=== PATIENT | female | born 1990 | race Caucasian/White ===

== ENCOUNTER → 2016-07-29 | Outpatient (CLI) | payer BC ==
[~2016-07-29] MED LIST: AA/A14DR2 RIGHT EAR; ACET-789 PO; ALBU17AE3; ASP81TEC PO; AZTH250C PO; BACL10TA PO; CELEXA; CHOL4PAC17 PO; GBPN600T PO; HYDR-700 PO; IBP800T PO; IBUP-1773 PO; INDO25CA PO; MECL12.579 PO; METF-380 PO; METF1000 PO; METFORMIN; NAPR-243 PO; NITR-65 PO; NITR100C3 PO; ONDAN4ODT PO; ONDN4T PO; PHEN100T26 PO; PNT40TEC PO; PREG50C PO; PRENATAL VIT PO; PRX10T PO; SERT25TA PO; SULF1TAB38; TOPAMAX; TPR25T PO; TRAM50TA2 PO; TRM50T PO; ocella PO
--- NOTE | 2016-07-29 12:21 | Diagnostic Imaging Report ---
INDICATION: Right hand injury. Pain 3 views of the right hand shows no fracture, dislocation or other acute bony abnormality. IMPRESSION: Normal right hand. Dictated by: Dictated on workstation # [id number]
== END ==
LOC: RAD 11:58
PROVIDERS: ATTEND Nurse Practitioner Family
DX: M79.641 Pain in right hand (principal)
CPT/HCPCS: 73130

== ENCOUNTER 2017-06-02 08:53 | Emergency (ER) | payer BC ==
[~2017-06-02] VITALS: Ht 165.1 cm; Wt 137.9 kg
[2017-06-02] MEDS ORDERED: KETOROLAC 30 MG/ML VIAL IVP STA (10:16)
[2017-06-02] MEDS ORDERED: CLINDAMYCIN 900 MG/50 ML IVPB 50 ML IV ONE (10:30)
[2017-06-02] MEDS ORDERED: NS 100 ML (IVPB) BAG IV ONE (11:00)
[2017-06-02] MEDS ORDERED: IOHEXOL 350 MG/ML 100 ML (OMNIPAQUE 350) VIAL IV ONE (11:00)
[2017-06-02 11:37] LABS: BASOPHILS % (AUTO) 0 % (0-10); EOSINOPHILS # (AUTO) 0.2 10^3/uL (0.0-0.3); EOSINOPHILS % (AUTO) 2 % (0-10); HEMATOCRIT 47 % (35-52); HEMOGLOBIN 15.9 G/DL (11.5-16.0); LYMPHOCYTES % (AUTO) 18 % (12-44); MEAN CORPUSCULAR HEMOGLOBIN 29 PG (25-34); MEAN CORPUSCULAR HGB CONC 34 G/DL (32-36); MEAN CORPUSCULAR VOLUME 85 FL (80-99); MONOCYTES # (AUTO) 0.9 X 10^3 (0.0-1.0); MONOCYTES % (AUTO) 9 % (0-12); NEUTROPHILS % (AUTO) 72 % (42-75); PLATELET COUNT 201 10^3/uL (130-400); RED CELL DISTRIBUTION WIDTH 12.7 % (10.0-14.5); WHITE BLOOD COUNT 11.1 10^3/uL (4.3-11.0)
[2017-06-02 11:52] LABS: ALANINE AMINOTRANSFERASE 36 U/L (0-55); ALBUMIN 4.6 GM/DL (3.2-4.5); ALKALINE PHOSPHATASE 56 U/L (40-136); AMYLASE 53 U/L (25-125); BILIRUBIN,TOTAL 0.5 MG/DL (0.1-1.0); BUN/CREATININE RATIO 12; CALCIUM 9.4 MG/DL (8.5-10.1); CARBON DIOXIDE 24 MMOL/L (21-32); CHLORIDE 105 MMOL/L (98-107); CREATININE SERUM 0.74 MG/DL (0.60-1.30); GFR ESTIMATED > 60; GLUCOSE 97 MG/DL (70-105); LIPASE 36 U/L (8-78); POTASSIUM 4.3 MMOL/L (3.6-5.0); SODIUM 138 MMOL/L (135-145); TOTAL PROTEIN 7.4 GM/DL (6.4-8.2)
--- NOTE | 2017-06-02 12:17 | Diagnostic Imaging Report ---
PROCEDURE: CT neck soft tissue with contrast. TECHNIQUE: Multiple contiguous axial images were obtained through the neck after the administration of contrast. INDICATION: Right-sided swelling Comparison: None Findings: There is moderate periapical lucency surrounding the right lower canine tooth best seen on series 3 image 54. There is erosion/destruction of the anterior cortex of the mandible at this level with a large amount of soft tissue edema and phlegmon involving the subcutaneous soft tissues ventral to the right mandible. There are a few prominent submental and submandibular lymph nodes on the right, likely reactive. The basal sinuses are clear. The airway appears patent. The thyroid gland appears unremarkable. No acute osseous abnormality seen. Impression: 1. There is an abscess tooth involving the right lower canine with cortical disruption of the anterior cortex of the mandible and considerable soft tissue phlegmon ventral to the right mandible. No drainable soft tissue abscess is seen. 2. Probable mild reactive adenopathy. Dictated by: Dictated on workstation # [id number]
[2017-06-02] MEDS ORDERED: CLIN300C11 PO (12:54)
[2017-06-02] MEDS ORDERED: LACT1POW8 MC (12:54)
[2017-06-02] MEDS ORDERED: NAPR-915 PO (12:54)
--- NOTE | 2017-06-02 12:54 | ED EENT ---
History of Present Illness General Chief Complaint: Facial Problems Stated Complaint: FACIAL SWELLING Nursing Triage Note: pt reports she was diagnosed with sinus infection one week ago and given a zpac and prednisone. pt reports a couple days ago she noticed swelling on and under the r side of her jaw. reports has had a swollen gland there before that required antibiotics. Allergies and Home Medications Allergies Coded Allergies: Penicillins (Unverified Allergy, Mild, 04/10/09) cefdinir (Unverified Allergy, Mild, 04/10/09) Home Medications Acetaminophen with Codeine 1 Each Tablet, 1-2 EACH PO Q4H Prescribed by: SHABNAM RANKIN on 02/16/15 1314 Ibuprofen 600 Mg Tablet, 600 MG PO Q6H PRN for PAIN Prescribed by: SHABNAM RANKIN on 02/16/15 1314 Metformin HCl 1,000 Mg Tablet, 1,000 MG PO DAILY, (Reported) Topiramate 25 Mg Tablet, 25 MG PO BID, (Reported) Past [id number]-[id number] Hx Patient Social History Alcohol Use: Denies Use Recreational Drug Use: No Smoking Status: Current Everyday Smoker Type Used: Cigarettes Recent Foreign Travel: No Contact w/Someone Who Travel: No Recent Infectious Disease Expo: No Physical Abuse: No Sexual Abuse: No Mistreated: No Surgeries History of Surgeries: Yes (HOLE IN HEART PATCHED WHEN 3, l knee) Surgeries: Gallbladder, Orthopedic Respiratory History of Respiratory Disorde: Yes Respiratory Disorders: Asthma Cardiovascular History of Cardiac Disorders: Yes (BORN WITH HOLE IN HEART, SX WHEN 3, NO ISSUES SINCE) Neurological History of Neurological Disord: Yes Reproductive System Hx Reproductive Disorders: No Female Reproductive Disorders: Polycystic Ovarian Dis Gastrointestinal History of Gastrointestinal Di: No Musculoskeletal History of Musculoskeletal Dis: No Endocrine History of Endocrine Disorders: Yes Cancer History of Cancer: No Psychosocial History of Psychiatric Problem: Yes Behavioral Health Disorders: PTSD, Depression Suicide Risk Score: 0 Integumentary History of Skin or Integumenta: No Blood Transfusions History of Blood Disorders: No Adverse Reaction to a Blood Tr: No Physical Exam Vital Signs Vital Signs - First Documented 06/02/17 10:08 Temp 96.6 Pulse 80 Resp 18 B/P (MAP) 145/109 (121) Pulse Ox 97 Progress/Results/Core Measures Results/Orders Lab Results Laboratory Tests Test 06/02/17 11:21 Range/Units White Blood Count 11.1 H 4.3-11.0 10^3/uL Red Blood Count 5.50 4.35-5.85 10^6/uL Hemoglobin 15.9 11.5-16.0 G/DL Hematocrit 47 35-52 % Mean Corpuscular Volume 85 80-99 FL Mean Corpuscular Hemoglobin 29 25-34 PG Mean Corpuscular Hemoglobin Concent 34 32-36 G/DL Red Cell Distribution Width 12.7 10.0-14.5 % Platelet Count 201 130-400 10^3/uL Mean Platelet Volume 12.0 H 7.4-10.4 FL Neutrophils (%) (Auto) 72 42-75 % Lymphocytes (%) (Auto) 18 12-44 % Monocytes (%) (Auto) 9 0-12 % Eosinophils (%) (Auto) 2 0-10 % Basophils (%) (Auto) 0 0-10 % Neutrophils # (Auto) 8.0 H 1.8-7.8 X 10^3 Lymphocytes # (Auto) 2.0 1.0-4.0 X 10^3 Monocytes # (Auto) 0.9 0.0-1.0 X 10^3 Eosinophils # (Auto) 0.2 0.0-0.3 10^3/uL Basophils # (Auto) 0.0 0.0-0.1 10^3/uL Sodium Level 138 135-145 MMOL/L Potassium Level 4.3 3.6-5.0 MMOL/L Chloride Level 105 98-107 MMOL/L Carbon Dioxide Level 24 21-32 MMOL/L Anion Gap 9 5-14 MMOL/L Blood Urea Nitrogen 9 7-18 MG/DL Creatinine 0.74 0.60-1.30 MG/DL Estimat Glomerular Filtration Rate > 60 BUN/Creatinine Ratio 12 Glucose Level 97 70-105 MG/DL Lactic Acid Level 0.92 0.50-2.00 MMOL/L Calcium Level 9.4 8.5-10.1 MG/DL Total Bilirubin 0.5 0.1-1.0 MG/DL Aspartate Amino Transf (AST/SGOT) 29 5-34 U/L Alanine Aminotransferase (ALT/SGPT) 36 0-55 U/L Alkaline Phosphatase 56 40-136 U/L Total Protein 7.4 6.4-8.2 GM/DL Albumin 4.6 H 3.2-4.5 GM/DL Amylase Level 53 25-125 U/L Lipase 36 8-78 U/L My Orders Orders - ASHVIN MANZO DO Saline Lock/Iv-Start (06/02/17 10:16) Amylase (06/02/17 10:16) Cbc With Automated Diff (06/02/17 10:16) Comprehensive Metabolic Panel (06/02/17 10:16) Lipase (06/02/17 10:16) Ketorolac Injection (Toradol Injection) (06/02/17 10:16) Clindamycin 900 Mg/50 Ml Ivpb (Cleocin P (06/02/17 10:30) Lactic Acid Analyzer (06/02/17 10:16) Blood Culture (06/02/17 10:16) Urine Bedside (06/02/17 10:16) Ct Neck (Soft Tissue) W (06/02/17 10:16) Iohexol Injection (Omnipaque 350 Mg/Ml 1 (06/02/17 11:00) Ns (Ivpb) (Sodium Chloride 0.9% Ivpb Bag (06/02/17 11:00) Medications Given in ED Current Medications Medications Dose Ordered Sig/Jose Route Start Time Stop Time Status Last Admin Dose Admin Clindamycin Phosphate/Dextrose 50 ml @ 100 mls/hr ONCE ONCE IV 06/02/17 10:30 06/02/17 10:59 DC 06/02/17 12:50 100 MLS/HR Iohexol 100 ml ONCE ONCE IV 06/02/17 11:00 06/02/17 11:12 DC 06/02/17 11:28 100 ML Sodium Chloride 100 ml ONCE ONCE IV 06/02/17 11:00 06/02/17 11:12 DC 06/02/17 11:28 100 ML Vital Signs/I&O Vital Sign - Last 12Hours 06/02/17 10:08 Temp 96.6 Pulse 80 Resp 18 B/P (MAP) 145/109 (121) Pulse Ox 97 Blood Pressure Mean: 121 Point of Care Testing Urine -Bedside: Negative Departure Impression Impression: Primary Impression: Dental abscess Additional Impression: Facial cellulitis Disposition: 01 HOME, SELF-CARE Condition: Stable Departure-Patient Inst. Referrals: ASHVIN ACOSTA MD (PCP/Family) Primary Care Physician Patient Instructions: Cellulitis (Skin Infection), Adult (DC), How to Care for Your Mouth and Teeth, Tooth Abscess (DC), Tooth Decay, Adult (DC) Add. Discharge Instructions: FREQUENT SALT WATER SWISHES ALTERNATE ICE AND HEAT TO AREA AT 20 MINUTE INTERVALS FOLLOW UP WITH DENTIST IN 2-3 DAYS FOR FURTHER CARE RETURN TO ER IF WORSE All discharge instructions reviewed with patient and/or family. Voiced understanding. Scripts Naproxen (Naproxen) 500 Mg Tablet 500 MG PO BID, #20 TAB Prov: ASHVIN MANZO DO 06/02/17 Lactobacillus Acidophilus (Acidophilus Lactobacillus) 1 Gm Powder 1 GM MC QID for 7 Days, #1 EA Prov: ASHVIN MANZO DO 06/02/17 Clindamycin HCl (Clindamycin HCl) 300 Mg Capsule 300 MG PO QID for FOR INFECTION, #40 CAP Prov: ASHVIN MANZO DO 06/02/17 ASHVIN MANZO DO Jun 02, 2017 12:54
[2017-06-02 13:37] VITALS: BP 136/99
== END 2017-06-02 13:37 | disposition home or self-care (01) ==
LOC: EDUNIT# 08:53 → ER 08:55
DX: K04.7 Periapical abscess without sinus (principal); L03.211 Cellulitis of face; F43.10 Post-traumatic stress disorder, unspecified; F32.9 Major depressive disorder, single episode, unspecified; J45.909 Unspecified asthma, uncomplicated; F17.210 Nicotine dependence, cigarettes, uncomplicated; Z87.42 Personal history of other diseases of the female genital tract; Z79.84 Long term (current) use of oral hypoglycemic drugs; Z88.0 Allergy status to penicillin; Z88.1 Allergy status to other antibiotic agents
CPT/HCPCS: 36415; 70491; 80053; 82150; 83605; 83690; 84703; 85025; 87040